=== PATIENT | female | born 1985 | race Hispanic/Latino ===

== ENCOUNTER 2016-10-26 07:48 | Inpatient (IN) | payer OTHER ==
[~2016-10-26] VITALS: Ht 154.9 cm; Wt 113.9 kg
[~2016-10-26 07:48] MED LIST: DOCU-41 PO; FERROUS GLUCON325 M1 PO; IBUP-1827 PO; PNV1TABL66 PO
[2016-10-26] MEDS ORDERED: Lactated Ringer's 1,000 ML IV PRN (08:08)
[2016-10-26] MEDS ORDERED: Methylergonovine 0.2 mg/mL Inj IM PRN ×2 (08:10→18:40)
[2016-10-26] MEDS ORDERED: Hemorrhage Kit, Post Partum XX ONE ×2 (08:10→18:40)
[2016-10-26] MEDS ORDERED: Oxytocin 30 Units/500 mL LR 30 UNITS in IV Premix 1 EACH IV PRN ×3 (08:10→18:40)
[2016-10-26] MEDS ORDERED: Oxytocin 10 Unit/mL Inj IM PRN ×2 (08:10→18:40)
[2016-10-26] MEDS ORDERED: Carboprost 250 mCg/mL Inj IM PRN ×2 (08:10→18:40)
[2016-10-26] MEDS ORDERED: fentaNYL-PF 50 mCg/mL 2 mL Inj IVPUSH PRN (08:10)
[2016-10-26] MEDS ORDERED: Sodium Chloride LOK Flush 10 mL Syringe IVFLUSH PRN (08:10)
[2016-10-26 08:56] LABS: Mean Corpuscular Hemoglobin 27.5 pg (27.0-35.0); Mean Corpuscular Volume 84.6 fL (81-100)
[2016-10-26] MEDS ORDERED: 0.9% Sodium Chloride 100 ML IV ONE (09:12)
[2016-10-26] MEDS ORDERED: Penicillin G K 5,000,000 Units Inj ONE (09:12)
[2016-10-26] MEDS ORDERED: Penicillin G K 5,000,000 UNITS/100 ML D5W IV ONE ×2 (09:20)
[2016-10-26] MEDS ORDERED: Lactated Ringer's 1,000 ML IV SCH ×3 (13:06→18:38)
[2016-10-26] MEDS ORDERED: Misoprostol 25 mCg/0.25 Tablet VAGINAL SCH (13:10)
[2016-10-26] MEDS ORDERED: Penicillin G K 3,000,000 Units/50 mL D5W Premix IV ONE (13:49)
--- NOTE | 2016-10-26 14:35 | HP ---
[address] [address] HISTORY AND PHYSICAL PATIENT: GURWINDER CANELA : 1985 MR#: [id number] ADMIT: 10/26/2016 JOB ID: [id number] IDENTIFICATION: She is a 30-year-old G 2, P 1, at term with premature rupture of membranes. HISTORY OF PRESENT ILLNESS: The patient is at 38 and 5/7 weeks today by good LMP consistent with a six week ultrasound. At 6 a.m. today, she had a sudden gush of clear fluid and has continued to leak since came into [facility] and is confirmed rupture. She has otherwise been feeling well. No recent fevers or illnesses. No fever. No bleeding. Good movement and now having some mild contractions. She has no known drug allergies. HISTORY: Current dates as above. Blood type O-positive, RPR nonreactive, rubella immune, hepatitis B surface antigen negative, HIV negative, gonorrhea chlamydia negative. Quad screen within normal limits. Glucola okay at 25 weeks. It was 114. Because of obesity, she also received early three hour GTT which was okay at nine weeks and has had some random sugars checked during , all of which have been normal. complicated by a first trimester UTI which was a group B strep. Also has had ongoing pelvic and right hip pain which appears to have been musculoskeletal, worsened during the . Size has been greater than dates, measuring about 3-5 cm ahead of dates or since the start of the third trimester. Ultrasound at 33 weeks showed weight in the 88th percentile, repeat ultrasound at 36 and 6/7 weeks showed a 32nd percentile. Both ultrasounds with normal AFIs. PREVIOUS HISTORY: Delivery 2016 of a baby girl, Altagracia, birthweight 3353 g, uncomplicated except that she did receive some Cytotec for initial lack of uterine tone after delivery. EBL was 400 cc. Used epidural. OTHER PAST MEDICAL AND SURGICAL HISTORY: She had surgery in her left knee because of a work accident in 2013, no other surgeries. No intra-abdominal surgeries. No other hospitalizations. She has no history of bleeding problems, lung problems or high blood pressure. MEDICATIONS: Acetaminophen and . No other medications currently. SOCIAL: A supportive . Does not smoke. Does not drink. No drug use. No history of intimate partner violence. OBJECTIVE: Vital signs are stable. She is in no acute distress. She is afebrile. She is somewhat uncomfortable with contractions. Cardiovascular: Regular rate and rhythm. S1, S2. No murmurs, gallops, rubs. Lungs clear to auscultation bilaterally. No wheezes. Abdomen is soft, gravid. Estimated weight 8 pounds (note this is discrepant from most recent ultrasound size). Lower extremities without edema. Cervical exam (first cervical exam at around 1 p.m. showed her to be 1 cm, about 50% effaced, posterior, -3, quite soft cervix. Definite vertex (vertex had been confirmed initially on ultrasound at labor and delivery and at bedside ultrasound in labor and delivery as well). LABORATORIES: White count 7.0, hematocrit 39.7, platelets 214. ASSESSMENT AND PLAN: 1. A 30-year-old G 2, P 1, at term with PROM, some initial contractions, though not much progress. We will augment her labor either with Cytotec, or, if contraction frequency and severity is too much for that, we will use Pitocin. The case has been discussed with process trainer. 2. GBS prophylaxis. The patient has already received the first dose of penicillin and will receive her 2nd here shortly. 3. Obesity with BMI greater than 45. Anesthesia is aware. We do not anticipate problems with anesthesia (patient successfully received epidural previously with delivery with a BMI of 43). MTDD
[2016-10-26] MEDS ORDERED: Penicillin G K Inj 3,000,000 UNITS in IV Premix 1 EACH IV SCH (16:30)
[2016-10-26] MEDS ORDERED: Atropine 1 mg/10 mL (Code) Syringe IVPUSH PRN (16:45)
[2016-10-26] MEDS ORDERED: Lactated Ringer's 500 ML IV ONE (16:45)
[2016-10-26] MEDS ORDERED: Ondansetron 2 mg/mL 2 mL Inj IVPUSH PRN (16:45)
[2016-10-26] MEDS ORDERED: EPHEDrine Sulfate 50 mg/mL Inj IVPUSH PRN (16:45)
[2016-10-26] MEDS ORDERED: fentaNYL 2 mCg/mL-Bupiv 0.125% 100 ML EPIDURAL SCH (16:45)
[2016-10-26] MEDS ORDERED: HYDROcodone-APAP 5-325 mg Tablet PO PRN (18:40)
[2016-10-26] MEDS ORDERED: LANOlin HPA 7 Gm Ointment TOPICAL PRN (18:40)
[2016-10-26] MEDS ORDERED: Witch Hazel-Glycerin Pads TOPICAL PRN (18:40)
[2016-10-26] MEDS ORDERED: Benzocaine (Dermoplast) 20% 60 Gm Spray TOPICAL PRN (18:40)
--- NOTE | 2016-10-26 22:55 | OP ---
[address] [address] OPERATIVE REPORT PATIENT: GURWINDER CANELA : 1985 MR#: [id number] ADMIT: 10/26/2016 JOB ID: [id number] DATE OF SURGERY: SURGEON: PREOPERATIVE DIAGNOSIS(ES): POSTOPERATIVE DIAGNOSIS(ES): DELIVERY NOTE: Stage 1: For details of admission, please see H and P by this provider. Briefly, the patient had presented with a rupture, at approximately 11 hours prior to delivery. Initially with contractions though little cervical change, though contractions became more frequent and strong at approximately 7-8 hours after rupture. Patient of 4 cm at 1-1/2 hours prior to delivery, with rapid progression to complete. Pain control with breathing, relaxation, family support. Patient desired epidural but was unable to be placed given the rapidity of her labor. tolerated well with a category one strip through latent labor, but did have some variables with good recovery at the end of the first stage. Penicillin x2 doses given for a positive maternal GBS. No maternal fevers. Stage 2: Total duration less 10 minutes. Excellent pushing effort, accompanied by decels from the , though with good recovery. Delivery of approximate 6 pound 11 oz infant in NJ position, male, Apgars 8 and 9 with a loose body cord which did not need to be reduced. passed to maternal abdomen after delivery, delayed cord clamping done at 60 seconds after delivery. The perineum with a moderate-sized second degree laceration. Stage 3: Duration of 7 minutes, approximately. After delivery of , Pitocin started, Mead maneuver as well as cord draining performed. Delivery of intact placenta with 2 vessel cord in Lorenzo presentation. Anesthesia for repair with approximately 15 mL of 1% lidocaine. Repair done in usual fashion with a single 3-0 Vicryl, with tissue approximation and hemostasis. EBL 250 cc. Mother and both doing well in recovery at the time of this dictation. MTDD
[2016-10-27] MEDS ORDERED: Sodium Chloride LOK Flush 10 mL Syringe IVFLUSH SCH (00:30)
[2016-10-27 07:05] LABS: Mean Corpuscular Hemoglobin 27.6 pg (27.0-35.0)
--- NOTE | 2016-10-27 15:49 | PCM.DIOB ---
Obstetrical Disch Instruction Date of Service: Oct 27, 2016 Dates of Hospitalization Date of Hospital Admission Oct 26, 2016 at 07:59 Providers Admitting Physician: Angel Morales MD Primary Care Physician: Angel Morales MD Attending Physician: Angel Morales MD Discharge Diagnosis Problems: (1) Spontaneous vaginal delivery Status: Acute ICD Code: O80 (2) Perineal laceration during delivery Qualifiers: Perineal laceration degree: second degree Qualified Code: O70.1 - Second degree perineal laceration during delivery Status: Acute ICD Code: O70.9 Diet Discharge Diet: No restrictions Activity Discharge Activity-General: Pelvic Rest for 6 weeks, Be up and about, Balance rest and activity, Activity as pain allows, Activity as energy allows Dressing and Incisional Care Hygiene: May shower, Perineal care, Sitz bath, Dermoplast spray, Witch Clementine pads, Ice Additional Instructions Discharge Instructions Prescriptions for vitamins, ibuprofen, DSS sent to [facility] pharmacy electronically by provider through outpatient electronic medical record Follow Up Plan Follow-up Provider (F9): Angel Morales MD Follow-up appointment: Weeks (6) Call your provider for: Fever or Chills, Shortness of breath, Heavy vaginal bleeding, Epigastric pain, Excessive constipation, Vaginal discomfort, Red painful breasts, Other (swollen, painful leg) Angel Morales MD Oct 27, 2016 15:48
[2016-10-27 17:30] VITALS: BP 112/67; PULSE 77; RESP 28
--- NOTE | 2016-10-29 08:28 | DIS ---
[address] [address] DISCHARGE SUMMARY PATIENT: GURWINDER CANELA : 1985 MR#: [id number] ADMIT: 10/26/2016 JOB ID: [id number] DIS: 10/27/2016 ADMISSION DIAGNOSES: 2 para 1, at term, with premature rupture of membranes. DISCHARGE DIAGNOSES: 2, now para 2, status post normal spontaneous vaginal delivery, with a precipitous delivery. HOSPITAL COURSE: For details of admission and delivery, see notes by this provider. Briefly, the patient came in with spontaneous rupture. After observation, she went into active labor. Active labor was quite rapid with less than 2 hours between 4 cm and delivery of a healthy . There was noted to be a two-vessel cord but no other abnormalities. After delivery, the patient did well, with good ambulation, pain control and had normal bowel and bladder function. She was taking p.o. well. She did have some difficulties with breast feeding, which had also happened with her older infant. She received nursing support for that, though not yet fully established by time of discharge. PHYSICAL EXAMINATION: On discharge, vital signs were stable. She is in no acute distress. Pleasant, cooperative. Cardiovascular: Regular rate and rhythm. S1, S2. No murmurs, gallops, or rubs. Lungs: Clear to auscultation bilaterally. No crackles, rhonchi, or wheezes. Abdomen is soft and nontender. Due to her obesity, uterus is difficult to palpate reliably. Lower extremities are without edema, nontender. LABORATORIES: Showed CBC 7.9, hematocrit 34.3, platelets 211. DISCHARGE INSTRUCTIONS: The patient is discharged home. Ibuprofen, vitamins and docusate are all faxed to the [facility] (her usual pharmacy is closed on the day of discharge). Reviewed usual potential peripartum complications, management of those and how to access care if they occur. PLAN: Follow up in six weeks, sooner p.r.n. MTDD
--- NOTE | 2016-10-29 15:17 | PATH ---
SURGICAL PATHOLOGY Attending Physician:Angel Morales MD CASE STATUS: Signed Out PATIENT NAME: GURWINDER CANELA PID: [id number] : 1985 DATE COLLECTED:10/26/2016 00:00 SPECIMEN: Placenta CLINICAL HISTORY: TWO-VESSEL CORD PLACENTA 1). PLACENTA FINAL DIAGNOSIS: 1.PLACENTA (402 GRAMS): MATURE PLACENTA WITH SINGLE SMALL PERIPHERAL INFARCT. SINGLE UMBILICAL ARTERY. NEGATIVE FOR CHORIOAMNIONITIS AND FUNISITIS. ICD10 O43.819 O27.0 GROSS DESCRIPTION: The specimen is received in formalin, labeled with the patient's name and consists of an intact placenta and includes placental disc (402 g, 13.8 x 13.5 x 3.0 cm), umbilical cord (length-8.5 cm, diameter-1.0 x 0.5 cm) and membranes. The membranes are ruptured 7.5 cm from the free edge of the placenta and are thick and semi-translucent. The umbilical cord is attached 1.5 cm from the edge of the placenta and contains 2 vessels. The surface is bosselated and shiny with no evidence of meconium. The maternal surface is dark maroon with normal cotyledon formation. The placental disc is spongy with no nodules, masses, or lesions identified. Section code: (A) edge of placenta with membranes; (B) umbilical cord; (C-D, E-F, G-H) placenta, 3 bisected full thickness sections. 10/28/16 JM MICRO DESCRIPTION: See diagnosis. ICD-9 CODES: CPT CODES: 1: 60297 Electronically Signed Out Deangelo Ashraf MD [facility] [address], [place] [address] Technical component performed at [facility], [address] [place] [address] Ave[address], [place], [address]
== END 2016-10-27 19:25 | disposition home or self-care (01) | DRG 775 ==
LOC: FBCO 07:48 → FBC 07:59
PROVIDERS: ADMIT Family Medicine; ATTEND Family Medicine
PROC: 10E0XZZ Delivery of Products of Conception, External Approach (ICD-10-PCS; principal; 2016-10-26)
PROC: 0KQM0ZZ Repair Perineum Muscle, Open Approach (ICD-10-PCS; 2016-10-26)
DX: O70.1 Second degree perineal laceration during delivery (principal); Z37.0 Single live birth; Z68.42 Body mass index [BMI] 45.0-49.9, adult; O99.824 Streptococcus B carrier state complicating childbirth; O42.02 Full-term premature rupture of membranes, onset of labor within 24 hours of rupture; Z3A.38 38 weeks gestation of pregnancy; O99.213 Obesity complicating pregnancy, third trimester; O62.3 Precipitate labor

== ENCOUNTER 2016-11-10 16:08 | Emergency (ER) | payer OTHER ==
[~2016-11-10] VITALS: Ht 160 cm; Wt 107.7 kg
[2016-11-10 16:12] VITALS: BP 139/82; PULSE 85; RESP 20; O2SAT 99
--- NOTE | 2016-11-10 17:07 | ED.REPORT ---
HPI- Female Date of Service Nov 10, 2016 ED Provider: Gunner,Ed The patient is a 30 year old female who gave on October 26. She initially had bleeding for 7 days after the delivery. The bleeding then stopped but returned about 4 days ago and she has also noticed pelvic pain, chills, fever, mild headache, and pain in her fingers and toes. She has been going through about 2 pads each day. She was seen at [facility] and was sent here after the physician spoke with the on-call OBGYN physician. She denies vomiting, diarrhea , dysuria or vaginal discharge. Nursing Notes Stated Complaint: ABDOMINAL PAIN Chief Complaint: Female Abdominal Pain Nursing Notes Reviewed: Yes Allergies: Coded Allergies: No Known Allergies (Unverified , 07/03/15) Scheduled Ferrous Gluconate (Ferrous Gluconate) 325 Mg Tablet 325 MG PO DAILY Pnv with Ca,No.72/Iron/FA ( Vitamin with Low Iron) 1 Each Tablet 1 EACH PO DAILY Scheduled PRN Docusate Sodium (Colace) 100 Mg Capsule 100 MG PO BID PRN PRN For Constipation Ibuprofen (Ibuprofen) 600 Mg Tablet 600 MG PO QID PRN PRN For Pain General Time Seen by MD: 16:09 Chief Complaint Abdominal pain..., Vaginal bleeding... Hx Obtained From: Patient, Spouse Arrived By: Walk-in Sudden in Onset?: Yes Onset Occurred: 4 days ago Symptom Duration: Since onset Location: : Abdomen lower: Suprapubic Quality: Painful Severity: Current: Moderate Severity: Maximum: Moderate Recent Healthcare: Recent doctor visit Similar Sx Previous: Yes Past Medical History Past Medical History None Past Surgical History knee surgery Family History Noncontributory Smoking History Never Smoker Social History Alcohol Use: Denies alcohol use Drug Use: Denies drug use Other Social History: Good social support, Local resident Occupation , lives with , no work or school Ambulatory Status Independent Review of Systems Review of Systems Note: +pain in fingers and toes Constitutional: Reports: Chills, Fever GI: Reports: Abdominal pain, Denies: Diarrhea, Vomiting Female: Reports: Pelvic pain, Vaginal bleeding - abnl, Denies: Dysuria, Vaginal discharge Neurologic: Reports: Headache (mild) Complete sys rev & neg: except as marked. Physical Exam Initial Vital Signs Vital Signs (First) Date Time Temp Pulse Resp B/P Pulse Ox O2 Delivery O2 Flow Rate FiO2 11/10/16 16:12 36.8 85 20 139/82 99 Room Air Initial VS: Reviewed Head / Eyes: Atraumatic, Normocephalic, PERRL ENT: Mucous membranes moist, Conjunctiva normal, No scleral icterus Neck: Supple, Non-tender, Full range of motion Respiratory: Breath sounds normal, Clear to auscultation, No respiratory distress Cardiovascular: Regular rate & rhythm, Heart sounds normal, Intact distal pulses Lymphatic: No lymphadenopathy Extremities: Vascular intact, Neuro intact, No swelling, No tenderness Skin: Warm, Dry, No cyanosis Neurologic: Alert, Oriented, Nonfocal Psychiatric: Mood/affect normal, Behavior normal, Normal thought content Female Genitourinary: Exam deferred General/Constitutional: Awake, Alert Appearance / Presentation: Positive: Obese Abdomen: Soft, No guarding, No rebound, BS normoactive, No distention, No hernia, No palpable mass, No pulsatile mass Tenderness/Guarding/Rebound: Positive: Tender suprapubic Interpretation & Diagnostics Lab Results Interpretation Result Diagram: 11/10/16 1732 11/10/16 1732 Test 11/10/16 17:32 White Blood Count 4.4th/mm3 (3.8-10.1) Red Blood Count 4.98mil/mm3 (3.90-5.20) Hemoglobin 13.4g/dL (12.0-15.6) Hematocrit 41.6% (35.0-46.0) Mean Corpuscular Volume 83.5fL (81-100) Mean Corpuscular Hemoglobin 26.9pg (27.0-35.0) Mean Corpuscular Hemoglobin Concent 32.2% (32.0-37.0) Red Cell Distribution Width 15.5% (12.3-15.4) Platelet Count 201bil/L (150-400) Sodium Level 135mEq/L (134-144) Potassium Level 3.9mEq/L (3.5-5.2) Chloride Level 98mEq/L (97-108) Carbon Dioxide Level 22mmol/L (18-29) Blood Urea Nitrogen 17mg/dL (6-20) Creatinine 0.50mg/dL (0.57-1.00) Estimat Glomerular Filtration Rate 208mL/min (>59) Glucose Level 99mg/dL (60-99) Calcium Level 9.5mg/dL (8.5-10.1) Total Bilirubin 0.5mg/dL (0.0-1.2) Aspartate Amino Transf (AST/SGOT) 41U/L (0-50) Alanine Aminotransferase (ALT/SGPT) 62U/L (0-32) Alkaline Phosphatase 105U/L (25-150) Total Protein 7.3g/dL (6.4-8.4) Albumin 3.8g/dL (3.4-5.0) Re-Eval/Medical Decision Med Decision/Clinical Course Care transferred to Dr. Villalobos Source of Hx: Old records Re-Evaluation/Progress : Time of Eval: 17:18 Re-Evaluation/Progress Note: Discussed plan for workup. Counseled Regarding: Diagnosis, Lab results Discharge & Departure Impression: Primary Impression: Vaginal bleeding Discharge Condition All VS Reviewed: Yes Condition: Stable Referrals: Angel Morales MD (PCP) Care Transferred to: Dr. Villalobos Care Transferred at: 18:01 Scribe Attestation Portions of this note were transcribed by Brittney Stiles. I, Dr. Li personally performed the history, physical exam and medical decision-making; I reviewed and confirmed the accuracy of the information in the transcribed note. Signed by: Silva Lenz, 11/10/2016 at 1800. copies to: Angel Morales MD, Timothy S DO Nov 10, 2016 17:07 Brittney Stiles Nov 10, 2016 17:11
[2016-11-10] MEDS ORDERED: 0.9% Sodium Chloride 1,000 ML IV ONE (17:17)
[2016-11-10 17:47] LABS: Mean Corpuscular Hemoglobin 26.9 pg (27.0-35.0); Mean Corpuscular Volume 83.5 fL (81-100)
[2016-11-10 19:12] LABS: APPEARANCE,URINE CLOUDY (CLEAR,HAZY); COLOR,URINE DARK YELLOW (YELLOW); OCCULT BLOOD,URINE LARGE (NEGATIVE); UROBILINOGEN,URINE NORMAL (NORMAL)
--- NOTE | 2016-11-10 20:18 | DRSVH ---
PROCEDURE: US PELVIC SONOGRAM + TRANSVAGINAL SONOGRAM INDICATIONS: 30 year-old female with pelvic pain. TECHNIQUE: Real-time scanning was performed of the pelvic organs, with image documentation. Additional endovagi nal scanning was necessary due to incomplete visualization of the adnexal and endometrial structures by transabdominal scanning. COMPARISON: None. FINDINGS: Transabdominal scanning: Limited scanning through the kidneys shows no hydronephrosis. No pathologi c free abdominal or pelvic fluid. Endovaginal scanning: Uterus: Uterus is normal in size at 13.5 x 7.2 x 9.8 cm. The endometrium measures 29 mm in combined thickness, with no vascularity on color Doppler interrogation. Ovaries: Neither ovary is well-seen due to overlying bowel gas. IMPRESSION: Heterogeneously thickened endometrium of 29 mm (well above the threshold value of 10 mm), suspicious for retained products of conception. Dictated by: Domingo Martinez M.D. on 11/10/2016 at 20:11 Approved by: Domingo Martinez M.D. on 11/10/2016 at 20:16
[2016-11-10 20:50] VITALS: BP 110/69; PULSE 77; RESP 16; O2SAT 97
[2016-11-10] MEDS ORDERED: _Amoxicillin-Clavulanate 875-125 mg Tablet PO SCH (23:30)
[2016-11-11 00:31] VITALS: BP 128/83; PULSE 80; RESP 14; O2SAT 98
== END 2016-11-11 00:33 | disposition home or self-care (01) ==
LOC: SED 16:08
DX: O72.1 Other immediate postpartum hemorrhage (principal); N39.0 Urinary tract infection, site not specified
CPT/HCPCS: 36415; 76830; 76856; 80053; 81000; 85027; 87040; 87086; 87088; 96360; 99285; J7030